=== PATIENT | female | born 1945 | race Caucasian/White ===

== ENCOUNTER 2016-09-08 21:10 | Emergency (ER) | payer MEDICARE, OTHER ==
[~2016-09-08] VITALS: Ht 157.5 cm; Wt 52.3 kg
[2016-09-08 21:13] VITALS: BP 193/87; PULSE 81; RESP 18; O2SAT 99
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
[2016-09-08] MEDS ORDERED: Lactated Ringer's 1,000 ML IV SCH (21:47)
[2016-09-08 22:09] LABS: BASOPHILS % (AUTO) 0.2 % (0-3); EOSINOPHILS % (AUTO) 0.1 % (0-5); MONOCYTES % (AUTO) 6.3 % (4-12); Mean Corpuscular Hemoglobin 31.4 pg (27.0-35.0); Mean Corpuscular Volume 92.2 fL (81-100); NEUTROPHILS % (AUTO) 84.6 % (40-74); Platelet Count 207 bil/L (150-400)
[2016-09-08 22:23] LABS: INR 0.91 ratio
[2016-09-08 22:29] LABS: TROPONIN T 0.01 ug/L (0.0-0.011)
[2016-09-08 22:41] LABS: Phosphorus 3.8 mg/dL (2.5-4.9)
--- NOTE | 2016-09-08 22:46 | DRSVH ---
PROCEDURE: X-RAY CHEST ONE VIEW, PORTABLE ([id number]) INDICATIONS: sepsis TECHNIQUE: One view of the chest was acquired. COMPARISON: None. FINDINGS: Surgical changes and devices: None. Lungs and pleura: No pleural effusions or pneumothorax. Lungs are clear. Mediastinum: Mediastinal contours appear normal. Heart size is normal. Bones and chest wall: No suspicious bony lesions. Overlying soft tissues appear unremarkable. IMPRESSION: 1. No acute cardiopulmonary disease. Dictated by: David Crawford M.D. on 09/08/2016 at 22:45 Approved by: David Crawford M.D. on 09/08/2016 at 22:46
[2016-09-08 23:30] VITALS: BP 135/44; PULSE 77; RESP 16; O2SAT 99
[2016-09-09] MEDS ORDERED: Ondansetron 2 mg/mL 2 mL Inj IVPUSH ONE (00:10)
[2016-09-09] MEDS ORDERED: Lactated Ringer's 1,000 ML IV ONE (00:10)
[2016-09-09 01:29] VITALS: BP 125/53; PULSE 75; RESP 18; O2SAT 100
[2016-09-09] MEDS ORDERED: _Ondansetron ODT 4 mg Tablet PO PRN (01:45)
[2016-09-09] MEDS ORDERED: ONDA8TAB10 PO (01:48)
[2016-09-09] MEDS ORDERED: SILV400C TP (02:05)
[2016-09-09 02:16] LABS: APPEARANCE,URINE CLEAR (CLEAR,HAZY); COLOR,URINE YELLOW (YELLOW); OCCULT BLOOD,URINE SMALL (NEGATIVE); UROBILINOGEN,URINE NORMAL (NORMAL)
== END 2016-09-09 02:09 | disposition home or self-care (01) ==
LOC: SED 21:10
DX: T25.221A Burn of second degree of right foot, initial encounter (principal); E86.0 Dehydration; X12.XXXA Contact with other hot fluids, initial encounter; Y93.G3 Activity, cooking and baking; Y99.8 Other external cause status; Y92.9 Unspecified place or not applicable; Z90.5 Acquired absence of kidney
CPT/HCPCS: 36415; 71010; 80053; 81000; 82308; 83605; 83690; 83735; 83880; 84100; 84484; 85025; 85610; 85730; 87040; 93005; 96361; 96374; 99285; J2405; J7120